=== PATIENT | male | born 1995 | race Hispanic/Latino ===

== ENCOUNTER 2019-12-06 22:04 | Emergency (ER) | payer OTHER ==
--- NOTE | 2019-12-06 23:12 | CT ---
CT BRAIN NONCONTRAST: DATE: 12/06/2019 HISTORY: 24-year-old male status post acute head trauma FINDINGS: There is no evidence of acute intra-axial or extra-axial hemorrhage. There is no midline shift or any other mass effect. There is no extra-axial fluid collection. There is no evidence of obstructive hydrocephalus. Calvarium is intact. IMPRESSION: No acute intracranial findings.
--- NOTE | 2019-12-06 23:13 | CT ---
CT maxillofacial noncontrast: HISTORY: 24-year-old male status post acute head and facial trauma. FINDINGS: Mildly displaced nasal bone fractures with overlying nasal soft tissue swelling representing contusio n. There is no other fracture. Orbits and paranasal sinuses are clear. IMPRESSION: Acute, traumatic nasal bone fracture
--- NOTE | 2019-12-06 23:16 | CT ---
CT CERVICAL SPINE NONCONTRAST: DATE: 12/06/2019 HISTORY: cervical trauma FINDINGS: There are no jumped or perched facets. There is no evidence of acute fracture. The vertebral body hei ghts are maintained. There is no prevertebral soft tissue swelling. IMPRESSION: No evidence of acute fracture or acute traumatic subluxation.
--- NOTE | 2019-12-06 23:23 | RAD ---
RADIOGRAPH CHEST 2 VIEWS: DATE: 12/06/2019 HISTORY: 24-year-old male status post acute chest trauma FINDINGS: There is no airspace density, pulmonary edema, pleural effusion, pneumothorax, or cardiomegaly. IMPRESSION: No acute cardiopulmonary findings.
== END 2019-12-06 23:59 ==
LOC: ERS 22:04
DX: S06.0X9A Concussion with loss of consciousness of unspecified duration, initial encounter (principal); S02.2XXA Fracture of nasal bones, initial encounter for closed fracture; S01.01XA Laceration without foreign body of scalp, initial encounter; Y04.0XXA Assault by unarmed brawl or fight, initial encounter
CPT/HCPCS: 12001; 70450; 70486; 71046; 72125